=== PATIENT | female | born 1985 | race Asian ===

== ENCOUNTER 2017-06-06 14:39 | Outpatient (CLI) | payer BC, OTHER | END 2017-06-06 14:43 | disposition short-term general hospital (02) | LOC: AMB 14:39 | DX: R51 Headache (principal) | CPT/HCPCS: A0425; A0427 ==

== ENCOUNTER 2017-06-06 14:43 | Emergency (ER) | payer BC, OTHER ==
[~2017-06-06] VITALS: Ht 160 cm; Wt 90.7 kg
[2017-06-06 16:37] VITALS: BP 116/82; TEMP 98
== END 2017-06-06 16:48 | disposition home or self-care (01) ==
LOC: ED 14:43
DX: S16.1XXA Strain of muscle, fascia and tendon at neck level, initial encounter (principal); S00.83XA Contusion of other part of head, initial encounter; V43.52XA Car driver injured in collision with other type car in traffic accident, initial encounter
CPT/HCPCS: 96372; 99283; J1885

== ENCOUNTER 2019-03-08 09:23 | Outpatient (CLI) | payer BC | END 2019-03-08 23:19 | disposition home or self-care (01) | LOC: RAD 09:23 | DX: M79.672 Pain in left foot (principal) ==

== ENCOUNTER 2019-04-12 10:34 | Outpatient (CLI) | payer BC | END 2019-04-12 22:38 | disposition home or self-care (01) | LOC: RAD 10:34 | DX: R05 Cough (principal) ==

== ENCOUNTER 2020-01-26 18:12 | Emergency (ER) | payer OTHER ==
[~2020-01-26] VITALS: Ht 160 cm; Wt 90.7 kg
[2020-01-26 18:59] LABS: PLATELET COUNT 196 K/uL (152-353)
[2020-01-26 19:08] LABS: POTASSIUM 3.9 mmol/L (3.6-5.2)
[2020-01-26 22:33] VITALS: BP 138/91; TEMP 98.5
== END 2020-01-26 22:33 | disposition home or self-care (01) ==
LOC: ED 18:12
PROVIDERS: Emergency Medicine
DX: R10.11 Right upper quadrant pain (principal); K27.9 Peptic ulcer, site unspecified, unspecified as acute or chronic, without hemorrhage or perforation
CPT/HCPCS: 80053; 81000; 81025; 82150; 83690; 85027; 96374; 99284; J1885; Q9963